=== PATIENT | female | born 1970 | race Caucasian/White ===

== ENCOUNTER → 2016-06-16 | Outpatient (CLI) | payer OTHER, BC ==
[~2016-06-16] MED LIST: ACHD5005 PO; LACT1TAB12 PO; LORA10CA PO; OXYC-12 PO
--- NOTE | 2016-06-16 14:01 | Diagnostic Imaging Report ---
INDICATION: Back pain. EXAMINATION: Thoracic spine. FINDINGS: AP and lateral views of the thoracic spine show scoliosis of the upper thoracic spine, convex to the left. The vertebral body height and alignment appear normal. The disc spaces are well maintained. IMPRESSION: Scoliosis of the thoracic spine. No acute abnormality is seen. Dictated by: Dictated on workstation # [id number]
--- NOTE | 2016-06-16 14:30 | Diagnostic Imaging Report ---
3 views of the cervical spine. INDICATION: Neck pain. FINDINGS: The alignment of the cervical spine is satisfactory. There is slight straightening of the cervical lordosis. The vertebral body heights are preserved. Disc heights are also preserved. There is no significant osteophyte formation identified. The alignment of the lateral masses at C1 and C2 on the open-mouth odontoid view appears unremarkable. The paraspinal soft tissues appear unremarkable. IMPRESSION: Slight straightening of the cervical lordosis seen, could be related to muscle spasm. Dictated by: Dictated on workstation # [id number]
== END ==
LOC: RAD 12:24
PROVIDERS: ATTEND Nurse Practitioner Family
DX: M54.2 Cervicalgia (principal); M54.6 Pain in thoracic spine
CPT/HCPCS: 72040; 72072